=== PATIENT | male | born 1960 | race Caucasian/White ===

== ENCOUNTER 2022-08-20 13:50 | Emergency (ER) | payer SELFPAY ==
--- NOTE | 2022-08-20 14:35 | EDPHYS ---
Physician Documentation [facility] Name: Kendall Pierce Age: 62 yrs Sex: Male : 1960 Arrival Date: 08/20/2022 Time: 13:54 Bed IW1 Private MD: ED Physician Izaiah Hsu HPI: 08/20 14:07 The patient presents to the emergency department requesting refill(s) for: Lisinopril jmm hydrochlorothiazide. The patient chronically suffers from hypertension. The patient has not experienced similar symptoms in the past. Is a 62-year-old male with history of hypertension the presents emerged department requesting refill of his high blood pressure medication. Patient is also looking for a list of providers. Denies any chest pain, shortness of breath, weakness, fever, abdominal pain, etc.. Historical: - Allergies: 14:27 No Known Allergies; iw - Home Meds: 14:27 lisinopril-hydrochlorothiazide 10-12.5 mg Oral tab 1 tab once daily [Active]; iw furosemide 40 mg Oral tab 1 tab once daily [Active]; metoprolol tartrate 25 mg Oral tab 1 tab once daily [Active]; spironolactone 25 mg Oral tab 1 tab once daily [Active]; pantoprazole 40 mg Oral TbEC 1 tab once daily [Active]; - PMHx: 14:27 CHF; COPD; iw ROS: 14:07 Constitutional: Negative for fever, chills, and weight loss, Cardiovascular: Negative jmm for chest pain, palpitations, and edema, Respiratory: Negative for shortness of breath, cough, wheezing, and pleuritic chest pain. 14:07 All other systems are negative. Exam: 14:07 Constitutional: This is a well developed, well nourished patient who is awake, alert, jmm and in no acute distress. Head/Face: atraumatic. Eyes: EOMI, no conjunctival erythema appreciated ENT: Moist Mucus Membranes Neck: Trachea midline, Supple Chest/axilla: Normal chest wall appearance and motion. Cardiovascular: Regular rate and rhythm. No edema appreciated Respiratory: Normal respirations, no respiratory distress appreciated Abdomen/GI: Non distended Back: Normal ROM Skin: General appearance color normal MS/ Extremity: Moves all extremities, no obvious deformities appreciated, no edema noted to the lower extremities Neuro: Awake and alert Psych: Behavior is normal, Mood is normal, Patient is cooperative and pleasant Vital Signs: 14:27 BP 106 / 72; Pulse 79; Resp 16; Temp 97.5; Pulse Ox 92% on R/A; iw MDM: 14:05 Patient medically screened. [facility] 14:05 Data reviewed: vital signs, nurses notes. [facility] 14:08 Counseling: I had a detailed discussion with the patient and/or guardian regarding: the [facility] historical points, exam findings, and any diagnostic results supporting the discharge/admit diagnosis, the need for outpatient follow up, to return to the emergency department if symptoms worsen or persist or if there are any questions or concerns that arise at home. ED course: Patient is alert nontoxic in appearance NAD.. Administered Medications: No medications were administered Disposition: 15:16 I reviewed the patient's care provided by the Advanced Practice Provider and agree with [email or web address] the diagnosis and treatment plan. Disposition Summary: 08/20/22 14:35 Discharge Ordered Location: Home [facility] Condition: Stable [facility] Diagnosis - Medication Refill [facility] Followup: [facility] - With: Jose Lowry MD - When: 2 - 3 days - Reason: Recheck today's complaints, Continuance of care, Re-evaluation by your physician Followup: [facility] - With: Ben Artis MD - When: 2 - 3 days - Reason: Recheck today's complaints, Continuance of care, Re-evaluation by your physician Discharge Instructions: - Discharge Summary Sheet [facility] Forms: - Medication Reconciliation Form [facility] - Thank You Letter [facility] - Antibiotic Education [facility] - Prescription Opioid Use [facility] Prescriptions: - Lisinopril-Hydrochlorothiazide 10-12.5 mg Oral Tablet - take 1 tablet by ORAL route once daily; 30 tablet; Refills: 0, Product [facility] Selection Permitted Signatures: Nathaniel Spencer PA PA jmm Williams, Irene, TIRSO RN Izaiah Gupta MD MD [id number]
--- NOTE | 2022-08-20 14:35 | ER ---
Nurse's Notes [facility] Name: Kendall Pierce Age: 62 yrs Sex: Male : 1960 Arrival Date: 08/20/2022 Time: 13:54 Bed IW1 Private MD: Diagnosis: Medication Refill Presentation: 08/20 14:26 Chief complaint: Patient states: needs a prescription for his BP med, lisinopril, is [place]w [place] of [place]. Coronavirus screen: At this time, the client does not indicate any symptoms associated with coronavirus-19. Ebola Screen: Patient negative for fever greater than or equal to 101.5 degrees Fahrenheit, and additional compatible Ebola Virus Disease symptoms Patient denies exposure to infectious person. Patient denies travel to an Ebola-affected area in the 21 days before illness onset. No symptoms or risks identified at this time. 14:26 Method Of Arrival: Ambulatory iw 14:27 Initial Sepsis Screen: Does the patient meet any 2 criteria? No. Patient's initial iw sepsis screen is negative. Does the patient have a suspected source of infection? No. Patient's initial sepsis screen is negative. Risk Assessment: Do you want to hurt yourself or someone else? Patient reports no desire to harm self or others. Onset of symptoms was August 20, 2022. 14:27 Acuity: ERVIN 4 iw Historical: - Allergies: 14:27 No Known Allergies; iw - Home Meds: 14:27 lisinopril-hydrochlorothiazide 10-12.5 mg Oral tab 1 tab once daily [Active]; iw furosemide 40 mg Oral tab 1 tab once daily [Active]; metoprolol tartrate 25 mg Oral tab 1 tab once daily [Active]; spironolactone 25 mg Oral tab 1 tab once daily [Active]; pantoprazole 40 mg Oral TbEC 1 tab once daily [Active]; - PMHx: 14:27 CHF; COPD; iw Vital Signs: 14:27 BP 106 / 72; Pulse 79; Resp 16; Temp 97.5; Pulse Ox 92% on R/A; iw ED Course: 13:54 Patient arrived in ED. am2 13:55 Nathaniel Spencer PA is PHCP. [facility] 13:55 Izaiah Hsu MD is Attending Physician. [facility] 14:27 Triage completed. iw 14:28 Franchesca Gurrola, RN is Primary Nurse. iw 14:28 Arm band placed on. iw 14:34 Jose Lowry MD is Referral Physician. [facility] 14:34 Ben Artis MD is Referral Physician. [place] Administered Medications: No medications were administered Outcome: 14:35 Discharge ordered by MD. [facility] 14:58 Discharged to home ambulatory. iw 14:58 Condition: good 14:58 Discharge instructions given to patient, Instructed on discharge instructions, follow up and referral plans. medication usage, Demonstrated understanding of instructions, follow-up care, medications, Prescriptions given X 1. 14:59 Patient left the ED. Signatures: Nathaniel Spencer PA PA Franchesca Walker, RN RN Tami Willett
[2022-08-20 15:14] VITALS: BP 106/72; TEMP 97.5; O2SAT 92
== END 2022-08-20 14:59 | disposition home or self-care (01) ==
LOC: ER 13:50
DX: Z76.0 Encounter for issue of repeat prescription (principal)
CPT/HCPCS: 99282